=== PATIENT | male | born 1995 | race African-American/Black ===

== ENCOUNTER 2018-01-25 23:37 | Emergency (ER) | payer BC ==
[2018-01-26 00:40] LABS: ADD MAN DIFF? NO
[2018-01-26 00:42] LABS: BASO % 1 % (0-3); EOS # 0.1 x10^3/uL (0.0-0.7); EOS % 3 % (0-3); HEMATOCRIT 47.5 % (39.0-53.0); HEMOGLOBIN 16.3 g/dL (13.0-17.5); LYMPH # 1.5 x10^3/uL (1.0-4.8); LYMPH % 37 % (24-48); MEAN CORPUSCULAR HEMOGLOBIN 31 pg (25-35); MEAN CORPUSCULAR HGB CONC 34 g/dL (31-37); MEAN CORPUSCULAR VOLUME 90 fL (79-100); MONO # 0.5 x10^3/uL (0.0-1.1); MONO % 13 % (0-9); NEUT # 1.9 x10^3uL (1.8-7.7); NEUT % 47 % (31-73); PLATELET COUNT 142 x10^3/uL (140-400); RED CELL DISTRIBUTION WIDTH 13.8 % (11.5-14.5)
[2018-01-26 01:07] LABS: ANION GAP 9 (6-14); BLOOD UREA NITROGEN 18 mg/dL (8-26); BUN/CREATININE RATIO 18 (6-20); CALCIUM 9.1 mg/dL (8.5-10.1); CARBON DIOXIDE 29 mmol/L (21-32); CHLORIDE 106 mmol/L (98-107); GLUCOSE 89 mg/dL (70-99); SODIUM 144 mmol/L (136-145)
[2018-01-26 01:14] LABS: ALBUMIN 4.1 g/dL (3.4-5.0); ALBUMIN/GLOBULIN RATIO 1.1 (1.0-1.7); ALK PHOS 101 U/L (46-116); ALT (SGPT) 45 U/L (16-63); AST (SGOT) 20 U/L (15-37); TOTAL BILIRUBIN 0.5 mg/dL (0.2-1.0); TOTAL PROTEIN 7.8 g/dL (6.4-8.2)
[2018-01-26 01:14] LABS: D-DIMER < 0.27 ug/mlFEU (0.00-0.50)
[2018-01-26 01:21] LABS: CKMB INDEX 0.5 % (0-4); CKMB MASS 1.5 ng/mL (0.0-3.6); CREATINE KINASE 289 U/L (39-308)
[2018-01-26 01:44] LABS: TROPONINI < 0.017 ng/mL (0.000-0.055)
== END 2018-01-26 02:44 | disposition home or self-care (01) ==
LOC: ER 23:37
DX: R07.89 Other chest pain (principal); R20.2 Paresthesia of skin; F17.210 Nicotine dependence, cigarettes, uncomplicated; F12.10 Cannabis abuse, uncomplicated
CPT/HCPCS: 36415; 70450; 71046; 80053; 82553; 83735; 84484; 85025; 85379; 93005; 99285-25